=== PATIENT | male | born 1970 | race Caucasian/White ===

== ENCOUNTER 2016-12-03 18:48 | Emergency (ER) | payer OTHER ==
[~2016-12-03] VITALS: Ht 180.3 cm; Wt 88.0 kg
[2016-12-03] MEDS ORDERED: KETOROLAC 30 MG/ML VIAL (J1885) IV ONE (20:45)
[2016-12-03] MEDS ORDERED: ONDANSETRON 4MG/2ML VIAL (J2405) IV ONE (20:45)
[2016-12-03 21:21] LABS: BASO % 0.5 % (0.0-1.0); EOS # 0.1 K/mm3 (0.0-0.50); EOS % 1.3 % (0.0-3.0); LARGE UNSTAINED CELL # 0.2 K/mm3 (0.0-0.4); LARGE UNSTAINED CELL % 2.1 % (0.0-4.0); LYMPH # 2.1 K/mm3 (1.5-4.5); MEAN CORPUSCULAR VOLUME 86.2 fl (80.0-96.0); MONO # 0.5 K/mm3 (0.0-0.8); MONO % 7.5 % (0.0-5.0); NEUTROPHILS # 4.4 K/mm3 (1.8-7.7); NEUTROPHILS % 61.7 % (36.0-66.0); PLATELET COUNT, AUTOMATED 193 k/mm3 (150-450); RED CELL DISTRIBUTION WIDTH 12.7 % (11.5-14.5); WHITE BLOOD COUNT 7.1 K/mm3 (4.0-10.0)
--- NOTE | 2016-12-03 21:30 | REPUSA ---
CT of the abdomen and pelvis without contrast Clinical statement: Pain. Technique: Multiple axial CT images were obtained from the base of the lungs to the floor of the pelv is utilizing 5 mm axial slices without administration of contrast. Coronal and sagittal reconstructio ns were also obtained. No comparison is available. Findings: Chest: The visualized lung bases are clear. Abdomen: The kidneys are normal in size bilaterally. There is no evidence of hydronephrosis or nephro lithiasis. The liver, spleen, pancreas, gallbladder and adrenal glands are unremarkable. The aorta de monstrates normal caliber and contour. There is no abdominal lymphadenopathy or ascites. Pelvis: The bowel is unremarkable, with no obstructive or inflammatory changes. The appendix is gurmeet l. The urinary bladder is within normal limits. There is no pelvic lymphadenopathy or ascites. The ot her pelvic structures appear unremarkable. Bones: There are no suspicious osseous abnormalities seen. There is mild degenerative disc disease at L5/S1. Impression: Unremarkable CT examination of the abdomen and pelvis. No acute abnormality to explain th e patient's pain. Mild degenerative disc disease at L5/S1.
[2016-12-03 21:37] LABS: ALBUMIN 4.2 GM/DL (3.2-5.2); ALBUMIN/GLOBULIN RATIO 1.62 (1.00-1.93); ALKALINE PHOSPHATASE 62 U/L (45-117); ALT/SGPT 27 U/L (12-78); ANION GAP 8 MEQ/L (8-16); AST/SGOT 16 U/L (15-37); BILIRUBIN,TOTAL 0.3 MG/DL (0.2-1.0); BLOOD UREA NITROGEN 16 MG/DL (7-18); CALCIUM LEVEL 8.6 MG/DL (8.5-10.1); CARBON DIOXIDE LEVEL 28 MEQ/L (21-32); CHLORIDE LEVEL 105 MEQ/L (98-107); GLOMERULAR FILTRATION RATE > 60.0 (>60); GLUCOSE, FASTING 93 MG/DL (70-105); POTASSIUM SERUM 3.9 MEQ/L (3.5-5.1); SODIUM LEVEL 141 MEQ/L (136-145); TOTAL PROTEIN 6.8 GM/DL (6.4-8.2)
[2016-12-03] MEDS ORDERED: TYLE325T5 PO (23:17)
[2016-12-03] MEDS ORDERED: ZANA4TAB PO (23:21)
[2016-12-03] MEDS ORDERED: IBUP600T26 PO (23:21)
[2016-12-03 23:25] VITALS: BP 123/74
[2016-12-03] MEDS ORDERED: NORCO, ANEXSIA 5/325MG TABLET (HYDROcodone/ACETAMINOPHEN) PO ONE (23:30)
[2016-12-03] MEDS ORDERED: tiZANidine 4 MG TAB PO ONE (23:30)
== END 2016-12-04 00:02 | disposition home or self-care (01) ==
LOC: M ED 19:58
DX: M54.14 Radiculopathy, thoracic region (principal); R11.0 Nausea
CPT/HCPCS: 74176; 80053; 81001; 85025; 96374; 96375; 99282; J1885; J2405; J3360

== ENCOUNTER 2018-09-10 05:40 | Inpatient (IN) | payer OTHER ==
[~2018-09-10] VITALS: Ht 180.3 cm; Wt 90.7 kg
[~2018-09-10 05:40] MED LIST: IBUP-1022 PO; TYLE325T5 PO; XANA0.25 PO; ZANA4TAB PO
[2018-09-10] MEDS ORDERED: LIDOCAINE 1% MDV 20ML VIAL SQ PRN (06:00)
[2018-09-10] MEDS ORDERED: LR 1,000 ML IV ONE (06:00)
[2018-09-10] MEDS ORDERED: fentaNYL 100 MCG/2 ML INJECTION (J3010) As Ordered ONE ×3 (06:48→09:50)
[2018-09-10] MEDS ORDERED: MIDAZOLAM INJ 2 MG/2 ML VIAL (J2250) As Ordered ONE ×2 (06:48→07:56)
[2018-09-10] MEDS ORDERED: D5W IV ONE (07:00)
[2018-09-10] MEDS ORDERED: TRANEXAMIC ACID IV ONE (07:00)
[2018-09-10] MEDS ORDERED: BUPIVACAINE LIPOSOME/PF 1.3% 20ML VIAL (13.3MG/ML)(EXPAREL)(C9290 PER1MG) As Ordered ONE (07:12)
[2018-09-10] MEDS ORDERED: TRANEXAMIC ACID 100 MG/ML 10ML VIAL As Ordered ONE (07:12)
[2018-09-10] MEDS ORDERED: ceFAZolin 1GM INJ (J0690 PER 500MG) As Ordered ONE (07:12)
[2018-09-10] MEDS ORDERED: fentaNYL 100 MCG/2 ML INJECTION (J3010) IV ONE (07:30)
[2018-09-10] MEDS ORDERED: MIDAZOLAM INJ 5 MG/ML VIAL (J2250) IV ONE (07:30)
[2018-09-10] MEDS ORDERED: PROPOFOL 200 MG/20 ML VIAL As Ordered ONE ×2 (07:56→09:01)
[2018-09-10] MEDS ORDERED: ePHEDrine SULFATE 25 MG/5 ML(5MG/ML) SYRINGE As Ordered ONE (07:56)
[2018-09-10] MEDS ORDERED: LIDOCAINE 2% INJ 100 MG/5 ML SDV (FOR ANES.) As Ordered ONE ×2 (07:56→09:01)
[2018-09-10] MEDS ORDERED: ROPIvacaine 0.5% 30 ML INJECTION (J2795 PER 1MG) ONE (08:03)
[2018-09-10] MEDS ORDERED: dexameTHASONE 10 MG/1 ML VIAL PRES.FREE (J1100) ONE (08:03)
[2018-09-10] MEDS ORDERED: KETOROLAC 30 MG/ML VIAL (J1885) As Ordered ONE (10:42)
[2018-09-10] MEDS ORDERED: ONDANSETRON 4MG/2ML VIAL (J2405) As Ordered ONE (10:42)
[2018-09-10] MEDS ORDERED: FLEET ENEMA PR PRN (11:00)
[2018-09-10] MEDS ORDERED: ONDANSETRON 4MG/2ML VIAL (J2405) IV PRN ×2 (11:00)
[2018-09-10] MEDS ORDERED: ACETAMINOPHEN TAB 650MG DOSE (2X325MG) PO PRN ×2 (11:00)
[2018-09-10] MEDS ORDERED: LR 1,000 ML IV SCH (11:00)
[2018-09-10] MEDS ORDERED: fentaNYL 100 MCG/2 ML INJECTION (J3010) IV PRN (11:00)
[2018-09-10] MEDS ORDERED: PERCOCET 5MG/325MG TAB PO PRN (11:00)
[2018-09-10 11:45] VITALS: BP 117/74
[2018-09-10 12:15] VITALS: BP 120/79
[2018-09-10 13:15] VITALS: BP 127/73
[2018-09-10 14:15] VITALS: BP 119/72
--- NOTE | 2018-09-10 14:33 | REP ---
AP, LATERAL LEFT KNEE, TWO VIEWS: HISTORY: Postop. The patient is status-post left total knee replacement. There is no acute fracture or dislocation. Subcutaneous air is present in the overlying soft tissue. IMPRESSION:The patient is status-post left total knee replacement. There is anatomic alignment. Electronically Signed by Calin Blood MD 09/10/2018 02:36 P
[2018-09-10 15:15] VITALS: BP 120/76
[2018-09-10 16:15] VITALS: BP 121/74
[2018-09-10] MEDS: KETOROLAC 30 MG/ML VIAL (J1885) IV SCH ×2 (16:53→23:17)
[2018-09-10] MEDS: PERCOCET 5MG/325MG TAB PO PRN (18:36)
[2018-09-11] MEDS: PERCOCET 5MG/325MG TAB PO PRN ×3 (00:33→12:35)
[2018-09-11 02:00] VITALS: BP 132/80
[2018-09-11] MEDS: KETOROLAC 30 MG/ML VIAL (J1885) IV SCH ×2 (05:14→10:43)
[2018-09-11 05:55] LABS: HEMATOCRIT 33.9 % (42.0-52.0); HEMOGLOBIN 12.1 g/dl (13.5-17.5); MEAN CORPUSCULAR HEMOGLOBIN 29.8 pg (27.0-33.0); MEAN CORPUSCULAR HGB CONC 35.7 g/dl (32.0-36.5); MEAN CORPUSCULAR VOLUME 83.5 fl (80.0-96.0); PLATELET COUNT, AUTOMATED 197 10^3/uL (150-450); RED BLOOD COUNT 4.06 10^6/uL (4.30-6.10); WHITE BLOOD COUNT 13.6 10^3/uL (4.0-10.0)
[2018-09-11 06:00] VITALS: BP 138/61
--- NOTE | 2018-09-11 07:03 | IPNPDOC ---
Date Seen The patient was seen on 09/11/18. Progress Note SUBJECTIVE: Patient is a 47 y/o male POD1 s/p L TKA. Patient seen and examined overnight. No acute overnight events. Has gotten up to the restroom on his own and voided spontaneously. He worked with physical therapy yesterday and ambulated with a walker. OBJECTIVE PHYSICAL EXAMINATION: VITAL SIGNS: Please see below. GENERAL: well nourished male, no acute distress CARDIOVASCULAR: 2+ DP/PT pulses, BCR all digits LLE. RESPIRATORY: non labored breathing. EXTREMITIES: LLE dressing in place, c/d/i. able to perform SLR. Full active ankle ROM. Knee ROM 0-40 degrees. NEUROLOGICAL: Sensation/motor intact in all LLE distributions LABORATORY DATA: Please see below. IMAGING: Post op films demonstrate well fixed TKA components DVT prophylaxis ordered?: Aspirin ASSESSMENT : This is a 47 y/o male POD1 s/p L TKA doing well PLAN: 1. WBAT LLE 2. PT for ambulation 3. Aspirin for DVT prophylaxis 4. Dressing down tomorrow. If patient discharged today may remove dressing tomorrow at home. If in house, will remove dressing in morning prior to discharge. 5. d/c labs DISPOSITION: likely d/c home today after physical therapy. VS, I&O, 24H, Fishbone Vital Signs/I&O Vital Signs Date Time Temp Pulse Resp B/P (MAP) Pulse Ox O2 Delivery O2 Flow Rate FiO2 09/11/18 06:52 18 Room Air 09/11/18 02:00 98.1 86 132/80 (97) 98 09/10/18 07:26 3 I&O- Last 24 Hours up to 6 AM 09/11/18 05:59 Intake Total 4115 ml Output Total 1875 ml Balance 2240 ml Laboratory Data 24H LABS Laboratory Tests 2 09/11/18 05:34: Nucleated Red Blood Cells % (auto) 0.0 CBC/BMP Laboratory Tests 09/11/18 05:34 Red Blood Count 4.06 L, Mean Corpuscular Volume 83.5, Mean Corpuscular Hemoglobin 29.8, Mean Corpuscular Hemoglobin Concent 35.7, Red Cell Distribution Width 12.4 HOPE SMITH MD Sep 11, 2018 07:03
[2018-09-11] MEDS ORDERED: ASPIRIN 325 MG TAB PO SCH (09:00)
--- NOTE | 2018-09-11 09:44 | RO ---
DATE OF PROCEDURE: 09/10/2018 PREOPERATIVE DIAGNOSIS: Left knee osteoarthritis. POSTOPERATIVE DIAGNOSIS: Left knee osteoarthritis. PROCEDURE PERFORMED: Left total knee arthroplasty. SURGEON: Dr. Orlin Azevedo MICROELECTRONICS ASSEMBLER: MAHNAZ Hodgson. ANESTHESIA PROVIDER: Dr. Janice Boone ANESTHESIA GIVEN: Single shot spinal and adductor canal nerve block. IMPLANTS USED: DePuy Attune size 7 cruciate retaining femoral component, size 6 fixed bearing tibial component with 5 mm polyethylene and 38 mm patellar polyethylene. ESTIMATED BLOOD LOSS: 100 mL. TOTAL TOURNIQUET TIME: 110 minutes, 250 mmHg, left thigh. COMPLICATIONS: None. MATERIALS SENT TO LAB: None. 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 He had failed appropriate nonoperative treatment to include activity modification, anti-inflammatory treatment, physical therapy, and injections. He had radiographs that were consistent with tricompartmental knee osteoarthritis with varus deformity. I discussed with the patient the risks, benefits, indications, and alternatives of operative versus nonoperative management and recommended a left total knee arthroplasty. We did discuss the survivorship given his young age. The patient expressed understanding with the risk of revision, which is approximately 20% at 20 years and provided informed consent for left total knee arthroplasty. DESCRIPTION OF OPERATION: The patient was positively identified in the preop holding where the surgical site was marked. He was then given a single shot adductor canal nerve block by the anesthesia service for postop pain control. He was then brought to the operating room, where he was given a single shot spinal anesthesia for intraoperative pain control. He was positioned supine on regular table with all bony prominences appropriately padded. Sequential compressive devices (SCDs) were placed on the nonoperative lower extremity for deep venous thrombosis (DVT) prophylaxis. He was prepped and draped in the usual sterile fashion. A final time-out was performed. I made a 15 cm longitudinal incision just medial to the midline of the patella extending from about 6 cm proximal to the superior pole of the patella to just medial to the tibial tubercle. I dissected through skin and subcutaneous tissue. I created a small subcutaneous flap medially to identify the retinaculum and the VMO layer. I then performed a standard medial parapatellar arthrotomy and a proximal medial tibial release using combination of Bovie and osteotome. I then resected the patellar fat pad. There was significant anterior interval scarring and scarring of the fat pad onto the proximal anterior tibia. After completing a medial release, I then brought the knee into flexion. I everted the patella and performed the distal femoral cut in 5 degrees of valgus and 9 mm distal femur cut. After completing the distal femur cut to create room for the 4-in-1 cutting block, I performed the patellar resection. Patella measured 25 mm in thickness. I resected approximately 10 mm, leaving 15 mm in residual patellar thickness. 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 The remnants of this was shelled out with a freer to avoid any later bony impingement. I then brought the knee into flexion. Placed the 4-in-1 cutting block onto the femur. Sized femur to size 7 using posterior referencing guide ensuring external rotation of the femoral component. I then placed 4-in-1 cutting block and performed the anterior, posterior and chamfer cuts after resecting the anterior cruciate ligament. After the femoral cuts were completed, I then brought the knee into flexion. I resected the medial and lateral menisci. I performed a recession of the posterior cruciate ligament (PCL). I then introduced the extramedullary tibial cutting guide, which was set to a 5 degree slope. I set for a 9 mm resection off the lateral condyle, which amounted to a 1-2 mm resection from the medial tibial plateau. I fixed the tibial cutting guide, ensured that the alignment zarina was parallel to the long axis of the tibia and a perpendicular cut would be made. I then performed the proximal tibial resection. After this was completed, I then checked the flexion and extension gaps and trialed with a 5 mm block and found this would be an adequate polyethylene. The knee was well balanced in both flexion and extension. I then resected osteophytes from the posterior portion of the femoral condyle and injected Exparel into the posterior joint capsule. I then placed the femoral trial, patellar trial and floated the tibial tray to assess rotation. I brought the knee through range of motion and noted excellent patellar tracking using no-touch technique. I sized the tibia to a size 6. I then performed the sulcus cut. Drilled the lug holes for the femur and reamed for the tibial component. After all holes were drilled, I then thoroughly irrigated the bone to clear any debris from the cancellous bone. After thorough irrigation and drying of the bone, I then placed the tibial component, femoral component and patellar components with the tibial polyethylene in a standard fashion. The tibial and femoral components were cemented in place as was the patellar polyethylene. After all components were placed, the knee was held in extension to allow the cement to dry. I then placed 2 grams of topical tranexamic acid (TXA) in the wound during this phase. I also injected of the remaining Exparel into the peripheral joint capsule and patellar fat pad and PCL for additional postoperative pain control. After all components were dried, the knee was then brought through range of motion. The tourniquet was let down. Obtained hemostasis using Bovie electrocautery. The wound was then thoroughly irrigated again with normal saline and closed in layers. The retinacular layer was closed with interrupted #0 Vicryl suture in a [id number] fashion, followed by a running barbed suture, and I obtained a watertight seal. The subcutaneous layer was closed with buried #2-0 Vicryl suture in interrupted fashion, followed by running #3-0 Monocryl for the skin and Prineo Dermabond dressing was applied. This ended the procedure. I was present and scrubbed in for all critical portions of the case. Sterile dressings were applied. POSTOPERATIVE PLAN: Patient will be weightbearing as tolerated. He will go to hospital floor after recovery in the postanesthesia care unit (PACU). He will have x-rays done in the PACU. He will be weightbearing as tolerated, have physical therapy today and be discharged home when criteria met. QUIANA
[2018-09-11] MEDS ORDERED: CelecoXIB (CeleBREX) 100 MG CAP PO SCH (21:00)
== END 2018-09-11 12:39 | disposition home or self-care (01) | DRG 470 ==
LOC: M OR 05:40 → M MS5PR 11:15
PROVIDERS: ADMIT Orthopaedic Surgery; ATTEND Orthopaedic Surgery
PROC: 0SRD0J9 Replacement of Left Knee Joint with Synthetic Substitute, Cemented, Open Approach (ICD-10-PCS; principal; 2018-09-10 07:30)
DX: M17.12 Unilateral primary osteoarthritis, left knee (principal)

== ENCOUNTER 2019-01-21 22:31 | Emergency (ER) | payer OTHER ==
[~2019-01-21] VITALS: Ht 180.3 cm; Wt 95.9 kg
[2019-01-21] MEDS ORDERED: TRAZ-252 PO (23:49)
[2019-01-22 00:36] VITALS: BP 120/79
[2019-01-22] MEDS ORDERED: KEFL500C17 PO (00:45)
[2019-01-22] MEDS ORDERED: CEPHALEXIN 500 MG CAP PO ONE (00:45)
[2019-01-22] MEDS ORDERED: KETOROLAC TROMETHAMINE 10 MG TAB PO ONE (00:45)
[2019-01-22] MEDS ORDERED: KETO10TAB PO (00:45)
--- NOTE | 2019-01-22 09:37 | REP ---
RIGHT LOWER LEG: AP and lateral views of the right lower leg are performed. There is no acute fracture, dislocation or intrinsic bone disease. In the medial soft tissues of the mid calf, there is a linear metallic foreign body measuring approximately 3 mm in length about 1 mm in diameter. Electronically Signed by Neil Marks MD 01/22/2019 04:26 P
--- NOTE | 2019-01-24 08:05 | ED PDOC ---
Post-Departure Follow-Up dr queen and ft [facility]a rosario faxed formal report of right leg tib fib for fu Kathy Rosales MD Jan 24, 2019 08:05
== END 2019-01-22 00:51 | disposition home or self-care (01) ==
LOC: M ED 22:31
DX: M79.5 Residual foreign body in soft tissue (principal); F41.9 Anxiety disorder, unspecified; Z79.899 Other long term (current) drug therapy

== ENCOUNTER → 2019-02-16 | Outpatient (CLI) | payer OTHER ==
[~2019-02-16] MED LIST changes: +KEFL500C17 PO; +KETO10TAB PO; +TRAZ-252 PO
--- NOTE | 2019-02-16 11:47 | REP ---
Clinical: Foreign body. Technique: AP and lateral views of the right tibia / fibula. Findings: There is a small 2 mm linear foreign body in the superficial soft tissue of the posterolateral midcalf suggesting small metallic syd. Age-related degenerative changes at the knee and ankle joint noted. No acute fracture or dislocation. Impression: Small 2 mm linear foreign body. Electronically Signed by Navin Rosas MD 02/16/2019 11:39 A
== END ==
LOC: M RAD 09:55
PROVIDERS: ATTEND Surgery
DX: M60.261 Foreign body granuloma of soft tissue, not elsewhere classified, right lower leg (principal)

== ENCOUNTER → 2019-04-06 | Outpatient (REF) | payer OTHER | LOC: M LAB REF 18:11 | PROVIDERS: ATTEND Surgery | DX: S80.851A Superficial foreign body, right lower leg, initial encounter (principal); W18.30XA Fall on same level, unspecified, initial encounter; Y92.009 Unspecified place in unspecified non-institutional (private) residence as the place of occurrence of the external cause ==

== ENCOUNTER 2019-08-01 19:51 | Emergency (ER) | payer OTHER ==
[~2019-08-01] VITALS: Ht 180.3 cm; Wt 92.7 kg
[2019-08-01 20:29] LABS: BASO % 0.6 % (0.0-1.0); EOS # 0.1 10^3/uL (0.0-0.5); EOS % 1.4 % (0.0-3.0); HEMATOCRIT 40.4 % (42.0-52.0); HEMOGLOBIN 13.7 g/dl (13.5-17.5); LYMPH % 28.5 % (24.0-44.0); MEAN CORPUSCULAR HEMOGLOBIN 29.3 pg (27.0-33.0); MEAN CORPUSCULAR HGB CONC 33.9 g/dl (32.0-36.5); MEAN CORPUSCULAR VOLUME 86.3 fl (80.0-96.0); MONO # 0.6 10^3/uL (0.0-0.8); MONO % 8.7 % (0.0-5.0); NEUTROPHILS # 4.3 10^3/uL (1.5-8.5); NEUTROPHILS % 60.5 % (36.0-66.0); PLATELET COUNT, AUTOMATED 235 10^3/uL (150-450); RED BLOOD COUNT 4.68 10^6/uL (4.30-6.10); WHITE BLOOD COUNT 7.1 10^3/uL (4.0-10.0)
[2019-08-01] MEDS ORDERED: ASPIRIN 325 MG TAB PO ONE (20:30)
[2019-08-01 20:33] LABS: INR 1.34; PARTIAL THROMBOPLASTIN TIME 30.8 SECONDS (25.0-38.4); PROTHROMBIN TIME 16.3 SECONDS (11.8-14.0)
[2019-08-01 20:41] LABS: BLOOD UREA NITROGEN 15 MG/DL (7-18); CALCIUM LEVEL 8.3 MG/DL (8.5-10.1); CARBON DIOXIDE LEVEL 27 MEQ/L (21-32); CHLORIDE LEVEL 107 MEQ/L (98-107); CK-MB VALUE MASS 1.1 NG/ML (<3.6); CPK CREATINE PHOSPHOKINASE 170 U/L (39-308); CREATININE FOR GFR 1.48 MG/DL (0.70-1.30); GLOMERULAR FILTRATION RATE 54.2 (>60); GLUCOSE, FASTING 88 MG/DL (70-100); MB/CK RELATIVE INDEX 0.65 (< OR =4); POTASSIUM SERUM 3.7 MEQ/L (3.5-5.1); SODIUM LEVEL 142 MEQ/L (136-145); TROPONIN I < 0.02 NG/ML (< 0.10)
[2019-08-01] MEDS ORDERED: NS 1,000 ML IV ONE (20:45)
[2019-08-01] MEDS ORDERED: ISOVUE-370 76% 100ML VIAL (Q9967) As Ordered ONE (20:49)
--- NOTE | 2019-08-01 21:57 | REPVR ---
PROCEDURE INFORMATION: Exam: CT Angiography Chest With Contrast Exam date and time: 08/01/2019 8:51 PM Age: 48 years old Clinical history: Chest pain TECHNIQUE: Imaging protocol: Computed tomographic angiography of the chest with intravenous contrast. 3D rendering: MIP reconstructed images were created and reviewed. Radiation optimization: All CT scans at this facility use at least one of these dose optimization techniques: automated exposure control; mA and/or kV adjustment per patient size (includes targeted exams where dose is matched to clinical indication); or iterative reconstruction. Contrast material: ISOVUE 370; Contrast volume: 75 ml; Contrast route: IV; COMPARISON: No relevant prior studies available. FINDINGS: Pulmonary arteries: No pulmonary embolism is identified. Great vessels off aortic arch: The brachiocephalic artery, imaged proximal portion of the left common carotid artery, and left subclavian artery are patent. Aorta: There is no thoracic aortic aneurysm, pseudoaneurysm, intramural hematoma, penetrating atherosclerotic ulcer, or dissection. Thyroid: Unremarkable. Lungs: There are 3 mm, 3 mm, 3 mm, and 4 mm solid pulmonary nodules in the right upper lobe (images 67, 75, 76, and 78 of the axial series 401). There is a 4 mm solid pulmonary nodule in the right middle lobe (image 98 of the axial series 401). There are two 3 mm solid pulmonary nodules in the right lower lobe (images 92 and 105 of the axial series 401). There is a 2 mm calcified granuloma in the left lung apex (image 31 of the axial series 401). There are two 4 mm solid pulmonary nodules in the left upper lobe (images 77 and 95 of the axial series 401). There are 3 mm, 3 mm, and 4 mm solid pulmonary nodules in the lingula (images 117, 125, and 131 of the axial series 401). No consolidation is noted. The major airways are patent. There are no emphysematous changes. There is mild dependent atelectasis in both lower lobes. Pleural space: Unremarkable. No pneumothorax. No pleural effusion. Heart: No cardiomegaly. No pericardial effusion. The ratio of the diameter of the right ventricle to the diameter of the left ventricle measures less than 1, which is within normal limits and there is no evidence for a right ventricular strain. Mediastinum: No mediastinal mass, fluid collection, or pneumomediastinum. Liver: The attenuation of the liver is lower compared to the spleen, which can be seen with fatty liver infiltration. The inferior most aspect of the right hepatic lobe was not imaged. Gallbladder and bile ducts: No calcified gallstones are seen. No gallbladder wall thickening, pericholecystic fluid, or pericholecystic inflammatory changes are identified. No dilation of the intrahepatic or extrahepatic bile ducts is noted. Adrenals: Normal. No adrenal mass. Lymph nodes: Normal. No enlarged lymph nodes. Bones/joints: The imaged bony structures are intact. There is no suspicious osteolytic or osteoblastic lesion. There are degenerative changes in the thoracic spine. Soft tissues: Unremarkable. IMPRESSION: 1. No acute findings in the chest. No pulmonary embolism. 2. Multiple solid pulmonary nodules range in size from 3 mm to 4 mm as detailed above. See management guidelines below. FLE[employer]CHNER SOCIET[employer] 2017 GUIDELINES FOR MANAGEMENT OF INCIDENTAL PULMONARY NODULES: Multiple solid nodules <6 mm: In a low risk patient, no routine follow-up. In a high risk patient, optional CT at 12 months. Use most suspicious nodule as guide to management. Follow-up intervals may vary according to size and risk. High Risk Patients as defined in the 2017 Fleischner Society Guidelines: ?History of heavy smoking ?Exposure to asbestos, radium, or uranium ?Family history of lung cancer ?Emphysema and pulmonary fibrosis (IPF in particular) ?Older age ?Sex (females at greater risk than men) ?Race (Blacks and at higher risk) ?Marginal spiculation / suspicious morphology ?Upper lobe location (also apex) ?Multiple nodules (2-5 nodules highest risk) ?Exceptions, such as technically suboptimal scanning Juan F H, Emiliano DP, Goo JM, et al. Guidelines for Management of Incidental Pulmonary Nodules Detected on CT images: From the Fleischner Society 2017. Radiology, February 2017;284(1):228-243. http://pubs.rsna.org/doi/pdf/10.1148/[email or web address] Electronically signed by: Montana Martínez On 08/01/2019 21:57:46 PM
[2019-08-02 01:19] LABS: CK-MB VALUE MASS < 1.0 NG/ML (<3.6); CPK CREATINE PHOSPHOKINASE 139 U/L (39-308); MB/CK RELATIVE INDEX 0.72 (< OR =4); TROPONIN I < 0.02 NG/ML (< 0.10)
[2019-08-02] MEDS ORDERED: ASPI81TA85 PO (01:46)
[2019-08-02 02:05] VITALS: BP 113/70
--- NOTE | 2019-08-02 09:47 | ECGEPIP ---
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
--- NOTE | 2019-08-02 09:47 | ECGEPIP ---
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
--- NOTE | 2019-08-03 16:03 | ED PDOC ---
Post-Departure Follow-Up ramon rosario faxed formal report of cta chest for fu Kathy Rosales MD Aug 03, 2019 16:03
== END 2019-08-02 02:07 | disposition home or self-care (01) ==
LOC: M ED 19:51
DX: R07.89 Other chest pain (principal); R20.2 Paresthesia of skin; F41.9 Anxiety disorder, unspecified; Z79.899 Other long term (current) drug therapy
CPT/HCPCS: 71275; 80048; 82550; 82553; 84484; 85025; 85610; 85730; 93005; 99284; Q9967

== ENCOUNTER → 2022-05-07 | Outpatient (CLI) | payer OTHER ==
[~2022-05-07] MED LIST changes: +ASPI81TA86 PO
== END ==
LOC: M PLAIMG 06:57
PROVIDERS: ATTEND Family Medicine
DX: M54.50 Low back pain, unspecified (principal)

== ENCOUNTER → 2023-02-19 | Outpatient (CLI) | payer OTHER ==
[2023-02-19 11:23] LABS: BASO # 0.1 10^3/uL (0.0-0.2); BASO % 0.9 % (0.0-1.0); EOS # 0.2 10^3/uL (0.0-0.5); EOS % 2.3 % (0.0-3.0); HEMATOCRIT 41.6 % (42.0-52.0); LYMPH # 1.4 10^3/uL (1.5-5.0); LYMPH % 20.8 % (24.0-44.0); MEAN CORPUSCULAR HEMOGLOBIN 29.9 pg (27.0-33.0); MEAN CORPUSCULAR HGB CONC 33.7 g/dl (32.0-36.5); MEAN CORPUSCULAR VOLUME 88.7 fl (80.0-96.0); MONO # 0.8 10^3/uL (0.0-0.8); MONO % 11.2 % (2.0-8.0); NEUTROPHILS # 4.4 10^3/uL (1.5-8.5); NEUTROPHILS % 64.4 % (36.0-66.0); PLATELET COUNT, AUTOMATED 211 10^3/uL (150-450); RED BLOOD COUNT 4.69 10^6/uL (4.30-6.10); WHITE BLOOD COUNT 6.9 10^3/uL (4.0-10.0)
[2023-02-19 11:52] LABS: ALKALINE PHOSPHATASE 71 U/L (46-116); ALT/SGPT 23 U/L (7.0-40); AST/SGOT 10 U/L (<34); BILIRUBIN,DIRECT < 0.1 MG/DL (<0.4); BILIRUBIN,TOTAL 0.3 MG/DL (0.3-1.2); TOTAL PROTEIN 6.5 G/DL (5.7-8.2)
[2023-02-19 12:03] LABS: INR 1.25; PARTIAL THROMBOPLASTIN TIME 31.3 SECONDS (24.8-34.2)
[2023-02-19 12:28] LABS: PT 1:2 SUBSTITUTION 14.5 SECONDS
== END ==
LOC: M LAB 08:20
PROVIDERS: ATTEND Internal Medicine Hematology
DX: D69.9 Hemorrhagic condition, unspecified (principal)

== ENCOUNTER → 2023-02-20 | Outpatient (CLI) | payer OTHER | LOC: M LAB 06:48 | PROVIDERS: ATTEND Internal Medicine Hematology | DX: D69.9 Hemorrhagic condition, unspecified (principal) ==

== ENCOUNTER → 2024-03-18 | Outpatient (CLI) | payer OTHER ==
[2024-03-18 12:36] LABS: HEMATOCRIT 40.6 % (42.0-52.0); MEAN CORPUSCULAR HEMOGLOBIN 30.5 pg (27.0-33.0); MEAN CORPUSCULAR HGB CONC 34.5 g/dl (32.0-36.5); MEAN CORPUSCULAR VOLUME 88.5 fl (80.0-96.0); PLATELET COUNT, AUTOMATED 211 10^3/uL (150-450); RED BLOOD COUNT 4.59 10^6/uL (4.30-6.10); WHITE BLOOD COUNT 6.2 10^3/uL (4.0-10.0)
[2024-03-18 12:47] LABS: ERYTHROCYTE SEDIMENTATION RATE 7 mm/hr (0-20)
[2024-03-18 12:57] LABS: INR 1.32
[2024-03-18 13:41] LABS: ALBUMIN 4.1 G/DL (3.2-5.2); ALKALINE PHOSPHATASE 72 U/L (46-116); ALT/SGPT 23 U/L (7.0-40); AST/SGOT 9 U/L (<34); BILIRUBIN,TOTAL 0.4 MG/DL (0.3-1.2); BLOOD UREA NITROGEN 19 MG/DL (9-23); CALCIUM LEVEL 9.5 MG/DL (8.5-10.1); CARBON DIOXIDE LEVEL 30 MMOL/L (20-31); CHLORIDE LEVEL 107 MMOL/L (98-107); CREATININE FOR GFR 0.92 MG/DL (0.70-1.30); GLOMERULAR FILTRATION RATE > 60.0 (>56); GLUCOSE, FASTING 93 MG/DL (60-100); POTASSIUM SERUM 4.3 MMOL/L (3.5-5.1); SODIUM LEVEL 142 MMOL/L (136-145); TOTAL PROTEIN 6.8 G/DL (5.7-8.2)
== END ==
LOC: M RAD 11:47
PROVIDERS: ATTEND Orthopaedic Surgery
DX: Z01.818 Encounter for other preprocedural examination (principal)

== ENCOUNTER → 2024-07-10 | Outpatient (CLI) | payer OTHER ==
[2024-07-10 08:03] LABS: INR 1.2; PROTHROMBIN TIME 15.5 SECONDS (12.5-14.5)
== END ==
LOC: M LAB 06:15
PROVIDERS: ATTEND Student in an Organized Health Care Education/Training Program
DX: Z01.812 Encounter for preprocedural laboratory examination (principal)

== ENCOUNTER → 2025-06-09 | Outpatient (CLI) | payer OTHER ==
[~2025-06-09] MED LIST changes: -IBUP-1022 PO; +IBUP600T42 PO
[2025-06-09 06:51] LABS: BASO # 0.1 10^3/uL (0.0-0.2); BASO % 0.7 % (0.0-1.0); EOS # 0.1 10^3/uL (0.0-0.5); EOS % 1.9 % (0.0-3.0); LYMPH # 1.7 10^3/uL (1.5-5.0); LYMPH % 25.0 % (24.0-44.0); MONO # 0.8 10^3/uL (0.0-0.8); MONO % 11.4 % (2.0-8.0); NEUTROPHILS # 4.1 10^3/uL (1.5-8.5); NEUTROPHILS % 60.4 % (36.0-66.0); PLATELET COUNT, AUTOMATED 210 10^3/uL (150-450)
[2025-06-09 07:27] LABS: CALCIUM LEVEL 8.5 MG/DL (8.5-10.1); CARBON DIOXIDE LEVEL 30 MMOL/L (20-31); CHLORIDE LEVEL 106 MMOL/L (98-107); CREATININE FOR GFR 0.97 MG/DL (0.70-1.30); GLOMERULAR FILTRATION RATE > 90.0 (>56); POTASSIUM SERUM 4.2 MMOL/L (3.5-5.1); SODIUM LEVEL 144 MMOL/L (136-145)
== END ==
LOC: M EKG 06:16
PROVIDERS: ATTEND Podiatrist
DX: M20.11 Hallux valgus (acquired), right foot (principal); M20.41 Other hammer toe(s) (acquired), right foot

== ENCOUNTER 2025-06-18 06:08 | Day surgery (SDC) | payer OTHER ==
[~2025-06-18] VITALS: Ht 180.3 cm; Wt 103.0 kg
[2025-06-18] MEDS ORDERED: LR 1,000 ML IV SCH (06:55)
[2025-06-18] MEDS ORDERED: LIDOCAINE 2% 100 MG/5 ML SDV (FOR ANES.) As Ordered ONE (07:21)
[2025-06-18] MEDS ORDERED: MIDAZOLAM INJ 2 MG/2 ML VIAL As Ordered ONE (07:21)
[2025-06-18] MEDS: ceFAZolin SOD 2 GM IV ONCE IV ONE (07:30)
[2025-06-18] MEDS: LIDOCAINE 2% MDV 20 ML VIAL As Ordered ONE (07:52)
[2025-06-18] MEDS ORDERED: ACETAMINOPHEN 1000MG/100ML IV BAG As Ordered ONE (07:59)
[2025-06-18] MEDS: GENTAMICIN SULF 80 MG/2 ML VIAL As Ordered ONE (08:00)
[2025-06-18] MEDS: dexAMETHasone 4 MG/ML 1 ML VIAL As Ordered ONE (08:00)
[2025-06-18] MEDS ORDERED: KETOROLAC 30 MG/ML 1 ML VIAL As Ordered ONE (09:12)
[2025-06-18 10:11] VITALS: BP 132/70; TEMP 98.1; O2SAT 99
== END 2025-06-18 10:34 | disposition home or self-care (01) ==
LOC: M SDC 06:08
PROVIDERS: ATTEND Podiatrist
DX: M20.11 Hallux valgus (acquired), right foot (principal); M20.41 Other hammer toe(s) (acquired), right foot
CPT/HCPCS: 28285; 28296; 28308; 73630; 76000; 88300; C1713; J0131; J0665; J0688; J1100; J1580; J1885; J2250; J3010